=== PATIENT | female | born 1980 | race Caucasian/White ===

== ENCOUNTER → 2020-08-25 | Outpatient (CLI) | payer OTHER ==
--- NOTE | 2020-08-27 13:25 | SLEEP ---
DATE OF STUDY: 08/25/2020 HOME POLYSOMNOGRAM REPORT OBJECTIVE: The patient is a 40-year-old female with excessive somnolence, rule out sleep apnea. Height 67 inches, weight 240 pounds, body mass index 37.6, [place] sleep score 14. INTERPRETATION: The apnea-hypopnea index is 13.5 events per hour of sleep. There were obstructive and central events. The minimum oxygen saturation is 57%. There were no cardiac arrhythmias observed. IMPRESSION: Abnormal home sleep study showing evidence of obstructive and central sleep apnea. RECOMMENDATIONS: 1. The patient could be established on variable CPAP, for example 5-15 cm. Alternatively, she could come into the sleep lab for an attended CPAP titration study. 2. She should pursue weight loss and avoid sedatives and alcohol. Thank you for letting us help with the patient's care IVETTE/AMINATA DR: Lukas TID: [id number]
== END ==
LOC: RT 10:38
PROVIDERS: ATTEND Nurse Practitioner Family
DX: G47.33 Obstructive sleep apnea (adult) (pediatric) (principal); G47.19 Other hypersomnia
CPT/HCPCS: G0399